=== PATIENT | male | born 1990 | race Caucasian/White ===

== ENCOUNTER 2025-05-11 13:49 | Emergency (ER) | payer BC, OTHER ==
[~2025-05-11] VITALS: Ht 172.7 cm; Wt 63.5 kg
[2025-05-11 14:11] VITALS: BP 143/99
[2025-05-11] MEDS ORDERED: Tetracaine HCl/Pf 0.5% Opth Soln 4 ml LEFTEYE ONE (15:20)
[2025-05-11] MEDS ORDERED: Fluorescein Sod 1MG Opth Strips LEFTEYE ONE (15:20)
[2025-05-11] MEDS ORDERED: Erythromycin 0.5% Opth Oint 1 gm LEFTEYE ONE (16:25)
[2025-05-11] MEDS ORDERED: ERYT.5TO LEFTEYE (16:26)
== END 2025-05-11 16:36 | disposition home or self-care (01) ==
LOC: ER 13:49
DX: T15.02XA Foreign body in cornea, left eye, initial encounter (principal); W44.9XXA Unspecified foreign body entering into or through a natural orifice, initial encounter
CPT/HCPCS: 65222; 99282-25; A9270